=== PATIENT | male | born 1980 | race Caucasian/White ===

== ENCOUNTER 2024-09-22 11:01 | Inpatient (IN) | payer OTHER ==
[2024-09-22 11:23] VITALS: BMI 25.8
[2024-09-22] MEDS ORDERED: chlordiazePOXIDE HCL 25 MG CAPSULE PO PRN (12:05)
[2024-09-22] MEDS ORDERED: ONDANSETRON *ODT* 4 MG TABLET SL PRN (12:06)
[2024-09-22] MEDS ORDERED: NICOTINE POLACRILEX 2 MG LOZENGE BC PRN (12:06)
[2024-09-22] MEDS ORDERED: LOPERAMIDE HCL 2 MG CAPSULE PO PRN (12:06)
[2024-09-22] MEDS ORDERED: NALOXONE (NARCAN) HCL 4 MG/0.1 ML SPRAY NS PRN (12:06)
[2024-09-22] MEDS ORDERED: POLYETHYLENE GLYCOL (HEALTHYLAX) 3350 17 GM PACKET PO PRN (12:06)
[2024-09-22] MEDS ORDERED: hydrOXYzine PAMOATE 25 MG CAPSULE (FP) PO PRN (12:06)
[2024-09-22] MEDS ORDERED: DICYCLOMINE HCL 10 MG CAPSULE PO PRN (12:06)
[2024-09-22] MEDS ORDERED: IBUPROFEN 400 MG TABLET (FP) PO PRN (12:06)
[2024-09-22] MEDS ORDERED: NICOTINE POLACRILEX 2 MG GUM BUC PRN (12:06)
[2024-09-22] MEDS ORDERED: BENZOCAINE/MENTHOL (CHLORASEPTIC ) LOZENGE MM PRN (12:06)
[2024-09-22] MEDS ORDERED: BENZONATATE 200 MG CAPSULE PO PRN (12:06)
[2024-09-22] MEDS ORDERED: ACETAMINOPHEN 325 MG TABLET (FP) PO PRN (12:06)
[2024-09-22] MEDS ORDERED: MAG HYDROX/AL HYDROX/SIMETH 30 ML UNIT-DOSE CUP PO PRN (12:06)
[2024-09-22] MEDS ORDERED: BISMUTH SUBSALICYLATE 524 MG/30 ML PO PRN (12:06)
[2024-09-22] MEDS ORDERED: METHOCARBAMOL 500 MG TABLET PO PRN (12:06)
[2024-09-22] MEDS ORDERED: guaiFENesin 600 MG TABLET.ER (FP) PO PRN (12:06)
[2024-09-22] MEDS ORDERED: MAGNESIUM HYDROX 2400MG/30ML ORAL SUSPENSION 30 ML CUP PO PRN (12:06)
[2024-09-22] MEDS ORDERED: IBUPROFEN 600 MG TABLET (FP) PO PRN (12:06)
[2024-09-22] MEDS ORDERED: chlordiazePOXIDE HCL 25 MG CAPSULE ONE (13:14)
[2024-09-22] MEDS ORDERED: propRANOLol HCL 10 MG TABLET ONE (13:14)
[2024-09-22] MEDS ORDERED: levETIRAcetam 500 MG TABLET (FP) PO ONE (13:14)
[2024-09-22] MEDS: levETIRAcetam 500 MG TABLET (FP) PO SCH (13:15)
[2024-09-22] MEDS: chlordiazePOXIDE HCL 25 MG CAPSULE PO ONE (13:16)
[2024-09-22] MEDS: propRANOLol HCL 10 MG TABLET PO ONE (13:16)
[2024-09-22] MEDS: chlordiazePOXIDE HCL 25 MG CAPSULE PO SCH (17:31)
[2024-09-22] MEDS: MELATONIN 5 MG TABLETS PO SCH (22:04)
[2024-09-22] MEDS: THIAMINE 100 MG TABLET PO SCH (22:04)
[2024-09-23 08:44] VITALS: BP 121/73; PULSE 67; RESP 16; TEMP 97.6
[2024-09-23 09:07] LABS: CHLORIDE 98 mmol/L (98-107); POTASSIUM 3.6 mmol/L (3.5-5.1); SODIUM 135 mmol/L (136-145)
[2024-09-23 09:38] LABS: ALBUMIN 3.9 g/dl (3.4-5.0)
[2024-09-23 09:40] LABS: BILIRUBIN,TOTAL 2.6 mg/dL (0.2-1)
[2024-09-23 09:41] LABS: ANION GAP 10 mmol/L (4-13); CALCIUM 9.2 mg/dL (8.5-10.1); CO2 28 mmol/L (21-32)
[2024-09-23 09:42] LABS: ALK PHOS 83 U/L (45-117)
[2024-09-23 09:43] LABS: GLUCOSE,RANDOM 107 mg/dL (74-106)
[2024-09-23 09:45] LABS: CREATININE 0.6 mg/dL (0.55-1.3); SGOT/AST 243 U/L (15-37); SGPT/ALT 108 U/L (13-61)
[2024-09-23] MEDS: PRENATAL VITAMINS W/ FOLIC ACID TABLET (FP) PO SCH (09:50)
[2024-09-23 09:52] LABS: HEMATOCRIT 40.2 % (40.1-51.0); HEMOGLOBIN 14.1 g/dL (13.7-17.5); MCHC 35.1 g/dl (32.3-36.5); MEAN PLT VOLUME 10.7 fl (9.4-12.4); PLATELET COUNT 70 x10^3/uL (163-337); RDW 12.1 % (12.1-15.9)
[2024-09-24] MEDS ORDERED: chlordiazePOXIDE HCL 25 MG CAPSULE PO SCH (05:00)
[2024-09-25] MEDS ORDERED: chlordiazePOXIDE HCL 10 MG CAPSULE PO PRN
[2024-09-25] MEDS ORDERED: chlordiazePOXIDE HCL 10 MG CAPSULE PO SCH (05:00)
[2024-09-26] MEDS ORDERED: chlordiazePOXIDE HCL 10 MG CAPSULE PO SCH (05:00)
[2024-09-27] MEDS ORDERED: chlordiazePOXIDE HCL 10 MG CAPSULE PO ONE (05:00)
== END 2024-09-23 11:23 | disposition left against medical advice (07) | DRG 770 ==
LOC: YASAS 11:01 → Y6N 13:19
PROVIDERS: ADMIT Allergy & Immunology; ATTEND Allergy & Immunology
PROC: HZ2ZZZZ Detoxification Services for Substance Abuse Treatment (ICD-10-PCS; principal; 2024-09-22)
DX: F10.230 Alcohol dependence with withdrawal, uncomplicated (principal); F12.20 Cannabis dependence, uncomplicated; F17.210 Nicotine dependence, cigarettes, uncomplicated; R17 Unspecified jaundice; R74.01 Elevation of levels of liver transaminase levels
CPT/HCPCS: 36415; 80053; 80305; 80307; 85027; 86780; 93005; 93010